=== PATIENT | male | born 1995 | race Caucasian/White ===

== ENCOUNTER 2016-12-23 19:18 | Observation (INO) | payer BC ==
[~2016-12-23] VITALS: Ht 188 cm; Wt 136.3 kg
[~2016-12-23 19:18] MED LIST: ASCO500T3 PO; IBUP-103 PO; LYSINE PO
[2016-12-23] MEDS ORDERED: ONDANSETRON INJ 2 MG/ML 2 ML VIAL IV STA (20:00)
[2016-12-23] MEDS ORDERED: SODIUM CHLORIDE 0.9% 1000ML 1,000 ML IV STA ×2 (20:00)
[2016-12-23] MEDS: MoRPHine SULFATE 4 MG/ML 1 ML CARP\\VIAL IV PRN ×3 (20:17→22:22)
[2016-12-23 20:25] LABS: BASO % 0.1 %; BASO ABS # 0.02 K/uL (0-0.2); COMPLETE YES; EOS % 0.4 %; HEMATOCRIT 43.9 % (42-52); IG% 0.2 %; LYMPH % 8.5 %; LYMPH ABS # 1.42 K/uL (1.2-3.4); MEAN CELL VOLUME 83.9 fL (80-100); MEAN CORPUSCULAR HEMOGLOBIN 29.1 pg (25-34); MEAN CORPUSCULAR HGB CONC 34.6 g/dl (32-36); MEAN PLATELET VOLUME 9.7 fL (7.4-10.4); MONO % 6.8 %; PLATELET COUNT 200 K/uL (130-400); RED BLOOD COUNT 5.23 M/uL (4.7-6.1); WHITE BLOOD COUNT 16.65 K/uL (4.8-10.8)
[2016-12-23 20:46] LABS: BUN/CREATININE RATIO 22.7 (10-20); CALCIUM 9.2 mg/dl (8.5-10.1); CREATININE 0.84 mg/dl (0.60-1.40); POTASSIUM 3.9 mmol/L (3.5-5.1)
--- NOTE | 2016-12-23 21:40 | DIAGNOSTIC IMAGING REPORT ---
APPENDIX ULTRASOUND HISTORY: Right lower quadrant abdominal pain. COMPARISON: None. FINDINGS: Note is made of a noncompressible blind ending tubular structure within the right lower quadrant that measures 2.2 cm in caliber. This structure contains echogenic shadowing abnormalities which likely reflect appendicoliths. IMPRESSION: Sonographic findings highly suggestive of acute appendicitis. Markedly dilated noncompressible appendix which contains appendicoliths. Findings discussed with Dr. Mackey at time of dictation. Electronically signed by: Jose M Haro M.D. 12/23/2016 9:39 PM Dictated Date/Time: 12/23/2016 9:38 PM
--- NOTE | 2016-12-23 21:51 | EMERGENCY ROOM VISIT NOTE ---
History Report prepared by Kaveh: Citlali Ovalle Under the Supervision of: Dr. Jamshid Maceky D.O. First contact with patient: 19:31 Chief Complaint: ABDOMINAL PAIN Stated Complaint: BAD ABD PAIN,VOMITING Nursing Triage Summary: PT woke this am with abd pain below umbilical area. PT then developed vomiting. PT has been vomiting all day, denies any cough or congestion, denies fever/chills. PT has dull aching pain to lower abd, denies any diarrhea. PT denies urinary symptoms also. PT gave U/A, noted to be dark yellow in color. History of Present Illness The patient is a 21 year old male who presents to the Emergency Room with complaints of worsening diffuse abdominal pain that started this morning. The patient describes the pain as a dull aching pain. He rates his discomfort as a 7 /10 in severity. The patient went to work this morning and the pain got progressively worse. He does landscaping for work. When he got home from work, he ate a bagel but he vomited after. He tried to take Advil to relieve his symptoms, but he vomited again afterward. He denies fevers, hematemesis, rectal bleeding, diarrhea, testicular pain, and lower extremity edema. The patient states that the dog jumped on his abdomen yesterday, but it was more in the area of his groin and the pain that he experienced as a result of that resolved after some time. Otherwise, the patient denies any trauma to his abdomen. The patient denies eating anything abnormal recently, but he adds that he did eat at [employer] last night. Source of History: patient Onset: this morning Position: abdomen (diffuse) Symptom Intensity: 7/10 Quality: ache, dull Timing: worsening Associated Symptoms: + nausea, + vomiting, No diarrhea, No fevers Note: no hematemesis, no rectal bleeding, no testicular pain, no lower extremity edema Review of Systems See HPI for pertinent positives & negatives. A total of 10 systems reviewed and were otherwise negative. Past Medical & Surgical Medical Problems: (1) No significant past medical history Surgical Problems: (1) No significant past surgical history Family History Hypertension Social History Smoking Status: Never Smoker Housing Status: lives with family Occupation Status: employed Current/Historical Medications Scheduled PRN Ibuprofen Tab (Advil), 400 MG PO TID PRN for Pain or Fever Allergies Coded Allergies: No Known Allergies (Unverified , NONE, 12/23/16) Physical Exam Vital Signs Date Time Temp Pulse Resp B/P Pulse Ox O2 Delivery O2 Flow Rate FiO2 12/23/16 22:09 92 18 128/63 98 12/23/16 21:42 80 18 134/67 99 Room Air 12/23/16 20:30 79 18 170/89 98 Room Air 12/23/16 20:20 79 18 160/78 100 Room Air 12/23/16 19:20 37.0 80 20 154/89 97 Room Air Physical Exam GENERAL: Patient is awake, alert, and in no acute distress. Patient is somewhat anxious appearing and appeared to be in pain. EYES: The conjunctivae are clear. The pupils are round and reactive. EARS, NOSE, MOUTH AND THROAT: The nose is without any evidence of any deformity. Mucous membranes are moist tongue is midline NECK: The neck is nontender and supple. RESPIRATORY: Normal respiratory effort is noted there is no evidence of wheezing rhonchi or rales CARDIOVASCULAR: Regular rate and rhythm noted there no murmurs rubs or gallops normal S1 normal S2 GASTROINTESTINAL: The abdomen is soft and distended. Bowel sounds are present in all quadrants. Abdomen is diffusely tender. Guarding in right lower quadrant , left upper quadrant, and left lower quadrant. BACK: No midline tenderness or or step-off noted range of motion in flexion extension as well as rotation no signs of muscle spasm noted MUSCULOSKELETAL/EXTREMITIES: There is no evidence of gross deformity full range of motion is noted in the hips and shoulders SKIN: There is no obvious evidence of any rash. There are no petechiae, pallor or cyanosis noted. NEUROLOGIC: Patient is awake alert and oriented x3 Medical Decision & Procedures ER Provider Diagnostic Interpretation: US results as stated below per my review and radiologist interpretation. APPENDIX ULTRASOUND IMPRESSION: Sonographic findings highly suggestive of acute appendicitis. Markedly dilated noncompressible appendix which contains appendicoliths. Findings discussed with Dr. Mackey at time of dictation. Electronically signed by: Jose M Haro M.D. 12/23/2016 9:39 PM Dictated Date/Time: 12/23/2016 9:38 PM Laboratory Results 12/23/16 20:16 Red Blood Count 5.23, Mean Corpuscular Volume 83.9, Mean Corpuscular Hemoglobin 29.1, Mean Corpuscular Hemoglobin Concent 34.6, Mean Platelet Volume 9.7, Neutrophils (%) (Auto) 84.0, Lymphocytes (%) (Auto) 8.5, Monocytes (%) (Auto) 6.8, Eosinophils (%) (Auto) 0.4, Basophils (%) (Auto) 0.1, Neutrophils # (Auto) 13.98, Lymphocytes # (Auto) 1.42, Monocytes # (Auto) 1.13, Eosinophils # (Auto) 0.07, Basophils # (Auto) 0.02 12/23/16 20:16 Test 12/23/16 19:35 12/23/16 20:16 Urine Color YELLOW Urine Appearance TURBID (CLEAR) Urine pH 5.5 (4.5-7.5) Urine Specific [place] 1.034 (1.000-1.030) Urine Protein NEG (NEG) Urine Glucose (UA) NEG (NEG) Urine Ketones 2+ (NEG) Urine Occult Blood NEG (NEG) Urine Nitrite NEG (NEG) Urine Bilirubin NEG (NEG) Urine Urobilinogen NEG (NEG) Urine Leukocyte Esterase NEG (NEG) Urine WBC (Auto) 1-5 /hpf (0-5) Urine RBC (Auto) 0-4 /hpf (0-4) Urine Hyaline Casts (Auto) 1-5 /lpf (0-5) Urine Epithelial Cells (Auto) 10-20 /lpf (0-5) Urine Bacteria (Auto) NEG (NEG) White Blood Count 16.65 K/uL (4.8-10.8) Red Blood Count 5.23 M/uL (4.7-6.1) Hemoglobin 15.2 g/dL (14.0-18.0) Hematocrit 43.9 % (42-52) Mean Corpuscular Volume 83.9 fL (80-100) Mean Corpuscular Hemoglobin 29.1 pg (25-34) Mean Corpuscular Hemoglobin Concent 34.6 g/dl (32-36) Platelet Count 200 K/uL (130-400) Mean Platelet Volume 9.7 fL (7.4-10.4) Neutrophils (%) (Auto) 84.0 % Lymphocytes (%) (Auto) 8.5 % Monocytes (%) (Auto) 6.8 % Eosinophils (%) (Auto) 0.4 % Basophils (%) (Auto) 0.1 % Neutrophils # (Auto) 13.98 K/uL (1.4-6.5) Lymphocytes # (Auto) 1.42 K/uL (1.2-3.4) Monocytes # (Auto) 1.13 K/uL (0.11-0.59) Eosinophils # (Auto) 0.07 K/uL (0-0.5) Basophils # (Auto) 0.02 K/uL (0-0.2) RDW Standard Deviation 37.8 fL (36.4-46.3) RDW Coefficient of Variation 12.4 % (11.5-14.5) Immature Granulocyte % (Auto) 0.2 % Immature Granulocyte # (Auto) 0.03 K/uL (0.00-0.02) Anion Gap 6.0 mmol/L (3-11) Est Creatinine Clear Calc Drug Dose 206.1 ml/min Estimated GFR () 146.1 Estimated GFR (Non- 126.0 BUN/Creatinine Ratio 22.7 (10-20) Calcium Level 9.2 mg/dl (8.5-10.1) Total Bilirubin 0.9 mg/dl (0.2-1) Direct Bilirubin 0.1 mg/dl (0-0.2) Aspartate Amino Transf (AST/SGOT) 19 U/L (15-37) Alanine Aminotransferase (ALT/SGPT) 36 U/L (12-78) Alkaline Phosphatase 93 U/L (45-117) Total Protein 7.6 gm/dl (6.4-8.2) Albumin 4.3 gm/dl (3.4-5.0) Lipase 87 U/L (73-393) Laboratory results per my review. Medications Administered Medications (Trade) Dose Ordered Sig/Alex Route Start Time Stop Time Status Last Admin Dose Admin Morphine Sulfate (MoRPHine SULFATE INJ) 4 mg Q15M PRN IV 12/23/16 20:00 01/06/17 19:59 12/23/16 22:22 4 MG Ondansetron HCl 4 mg 4 mg NOW STAT IV 12/23/16 20:00 12/23/16 20:02 DC 12/23/16 20:16 4 MG Sodium Chloride 1,000 ml @ 200 mls/hr Q5H STAT IV 12/23/16 20:00 12/24/16 00:59 12/23/16 22:13 200 MLS/HR Sodium Chloride (Nss 1000ml) 1,000 ml @ 999 mls/hr Q1H1M STAT IV 12/23/16 20:00 12/23/16 21:00 DC 12/23/16 20:16 999 MLS/HR Cefoxitin Sodium (Mefoxin IV) 2,000 mg STK-MED ONCE .ROUTE 12/23/16 22:13 12/23/16 22:16 DC 12/23/16 22:22 2,000 MG ED Course 1933: The medical student evaluated the patient at this time. We discussed her findings and potential treatment plans. 1957: The patient was evaluated in room C12. A complete history and physical examination were performed. 1999: Ordered NSS 1,000 ml @ 999 mls/hr IV, NSS 1,000 ml @ 200 mls/hr IV, Zofran Inj 4 mg IV, Morphine Sulfate 4 mg IV 2129: Ultrasound called me and informed me that the patient's appendix appears dilated. 2132: The medical student updated the patient on the suspected ultrasound results. 2133: I discussed the patient's case with Dr. Skyler Nash Surgery. The patient will be evaluated for further management. 2135: Dr. Haro - Radiology called to inform me that the patient does have acute appendicitis on ultrasound. 2143: Upon the medical student's reevaluation, the patient is resting comfortably. She discussed results and treatment plan with the patient and his mother. They verbalize agreement and understanding. I spoke with Dr. Skyler Fuller. The patient will be evaluated for further management and care. Medical Decision Prior records/ancillary studies reviewed. Triage Nursing notes reviewed. The patient's history was concerning for abdominal pain. Differential diagnosis: Etiologies such as appendicitis, diverticulitis, PUD, biliary pathology, UTI, pancreatitis, obstruction, mesenteric ischemia, aortic pathology, infections, inflammatory bowel disease, renal colic, as well as others were entertained. The patient is a 21-year-old male who presented to the emergency department for an evaluation of ongoing right-sided abdominal pain. The patient had very significant tenderness in the right lower quadrant. He had guarding in the right lower quadrant. He had an elevated white blood cell count. The patient had an ultrasound which did reveal signs of appendicitis. I discussed the patient's laboratory and radiographic studies with him. He was treated with IV fluids IV pain medicine and IV antiemetics. The patient is feeling somewhat better on reevaluation. I discussed this case with the on-call general surgeon. He has agreed to evaluate the patient urgency apartment for further management and disposition. Consults Time Called: 2131 Consulting Physician: Dr. Holland - General Surgery Returned Call: 2133 I discussed the patient's case with Dr. Holland - General Surgery. The patient will be evaluated for further management. Impression Primary Impression: Acute appendicitis Scribe Attestation The scribe's documentation has been prepared under my direction and personally reviewed by me in its entirety. I confirm that the note above accurately reflects all work, treatment, procedures, and medical decision making performed by me. Departure Information Dispostion Being Evaluated By Surgeon Referrals No Doctor, Assigned (PCP) Patient Instructions My [facility] Problem Qualifiers Primary Impression: Acute appendicitis Acute appendicitis type: with localized peritonitis Qualified Codes: K35.3 - Acute appendicitis with localized peritonitis
[2016-12-23 21:59] LABS: URINE APPEARANCE TURBID (CLEAR); URINE BILIRUBIN NEG (NEG); URINE COLOR YELLOW; URINE NITRITE NEG (NEG); URINE PH 5.5 (4.5-7.5); URINE SPECIFIC GRAVITY 1.034 (1.000-1.030); UROBILINOGEN NEG (NEG)
[2016-12-23 22:00] LABS: MANUAL MICROSCOPIC REQUIRED? NO; REVIEW REQ? NO
[2016-12-23] MEDS ORDERED: GLYCOPYRROLATE INJ 0.2 MG/ML VIAL ONE (22:08)
[2016-12-23] MEDS ORDERED: NEOSTIGMINE METHYLSULFATE 5 MG/5 ML SYR ONE (22:08)
[2016-12-23] MEDS ORDERED: MIDAZOLAM HCL 1 MG/ML 2ML VIAL ONE (22:08)
[2016-12-23] MEDS ORDERED: DEXAMETHASONE SOD INJ 4 MG/ML VIAL ONE (22:08)
[2016-12-23] MEDS ORDERED: SUCCINYLCHOLINE CHLORIDE 20 MG/ML 10 ML VIAL IV ONE (22:08)
[2016-12-23] MEDS ORDERED: PROPOFOL IV EMULSION 10 MG/ML 20 ML VIAL IV ONE (22:08)
[2016-12-23] MEDS ORDERED: FENTANYL CITRATE INJ 50 MCG/1 ML 2 ML VIAL ONE ×2 (22:08→23:24)
[2016-12-23] MEDS ORDERED: ROCURONIUM BROMIDE 10 MG/ML 5 ML VIAL ONE (22:08)
[2016-12-23] MEDS ORDERED: ONDANSETRON INJ 2 MG/ML 2 ML VIAL ONE (22:08)
[2016-12-23] MEDS ORDERED: CEFOXITIN SOD 2 GM VIAL ONE (22:13)
[2016-12-23] MEDS ORDERED: CEFOXITIN SOD 2 GM VIAL IV STA (22:19)
--- NOTE | 2016-12-23 22:19 | History and Physical ---
History & Physical Date & Time of Service: Dec 23, 2016 at 22:11 Chief Complaint: Bad Abd Pain,Vomiting Primary Care Physician: No Doctor, Assigned History of Present Illness Source: patient, family pt is a 21 year old male who presents to ER for one day history lower abdominal pain, with nausea and vomiting, pt's pain is located at RLQ, pt denies diarrhea , no fever, Family History Hypertension Social History Smoking Status: Never Smoker Smokeless Tobacco Use: No Alcohol Use: none Drug Use: none Occupational Status: employed Allergies Coded Allergies: No Known Allergies (Unverified , NONE, 12/23/16) Home Medications Scheduled PRN Ibuprofen Tab (Advil), 400 MG PO TID PRN for Pain or Fever Review of Systems Constitutional: No chills, No fatigue, No fever, No problem reported, No sweats , No weakness, No weight loss Eyes: No diplopia, No discharge, No eye pain, No problem reported, No redness, No worsening of vision ENT: No dental problems, No hearing loss, No nasal symptoms, No problem reported, No sore throat, No tinnitus, No trouble swallowing, No unusual epistaxis Respiratory: No cough, No dyspnea at rest, No dyspnea on exertion, No hemoptysis, No problem reported, No shortness of breath, No sputum, No wheezing Cardiovascular: No PND, No chest pain, No claudication, No edema, No orthopnea , No palpitations, No problem reported Abdomen: + nausea, + pain, + vomiting Musculoskeletal: No calf pain, No joint pain, No muscle pain, No problem reported, No swelling Genitourinary - Male: No dysuria, No hematuria, No impotence, No lesions, No penile discharge, No problem reported, No urinary frequency, No urinary hesitancy, No urinary incontinence, No urinary retention, No urinary urgency Neurologic: No balance problems, No memory loss, No numbness/tingling, No paralysis, No problem reported, No vertigo, No weakness Psychiatric: No anhedonism, No anxiety, No depression symptoms, No insomnia, No problem reported, No substance abuse Endocrine: No excessive thirst, No excessive urination, No fatigue, No problem reported Hematologic / Lymphatic: No abnormal bleeding/bruising, No clotting problems, No night sweats, No problem reported, No swollen lymph nodes Physical Exam Vital Signs Date Time Temp Pulse Resp B/P Pulse Ox O2 Delivery O2 Flow Rate FiO2 12/23/16 22:09 92 18 128/63 98 12/23/16 21:42 80 18 134/67 99 Room Air 12/23/16 20:30 79 18 170/89 98 Room Air 12/23/16 20:20 79 18 160/78 100 Room Air 12/23/16 19:20 37.0 80 20 154/89 97 Room Air General Appearance: WD/WN, + mild distress Head: normocephalic Eyes: normal inspection ENT: normal ENT inspection Neck: supple, no JVD Respiratory/Chest: chest non-tender Cardiovascular: regular rate, rhythm, no edema, no gallop, no JVD Abdomen/GI: soft, + tenderness, + guarding, + rebound Extremities/Musculoskelatal: normal inspection, no calf tenderness, normal capillary refill Neurologic/Psych: no motor/sensory deficits, alert, normal mood/affect Skin: normal color, warm/dry, no rash Diagnostics Laboratory Results Results Past 24 Hours Test 12/23/16 19:35 12/23/16 20:16 Range/Units Urine Color YELLOW Urine Appearance TURBID CLEAR Urine pH 5.5 4.5-7.5 Urine Specific [place] 1.034 1.000-1.030 Urine Protein NEG NEG Urine Glucose (UA) NEG NEG Urine Ketones 2+ NEG Urine Occult Blood NEG NEG Urine Nitrite NEG NEG Urine Bilirubin NEG NEG Urine Urobilinogen NEG NEG Urine Leukocyte Esterase NEG NEG Urine WBC (Auto) 1-5 0-5 /hpf Urine RBC (Auto) 0-4 0-4 /hpf Urine Hyaline Casts (Auto) 1-5 0-5 /lpf Urine Epithelial Cells (Auto) 10-20 0-5 /lpf Urine Bacteria (Auto) NEG NEG White Blood Count 16.65 4.8-10.8 K/uL Red Blood Count 5.23 4.7-6.1 M/uL Hemoglobin 15.2 14.0-18.0 g/dL Hematocrit 43.9 42-52 % Mean Corpuscular Volume 83.9 80-100 fL Mean Corpuscular Hemoglobin 29.1 25-34 pg Mean Corpuscular Hemoglobin Concent 34.6 32-36 g/dl Platelet Count 200 130-400 K/uL Mean Platelet Volume 9.7 7.4-10.4 fL Neutrophils (%) (Auto) 84.0 % Lymphocytes (%) (Auto) 8.5 % Monocytes (%) (Auto) 6.8 % Eosinophils (%) (Auto) 0.4 % Basophils (%) (Auto) 0.1 % Neutrophils # (Auto) 13.98 1.4-6.5 K/uL Lymphocytes # (Auto) 1.42 1.2-3.4 K/uL Monocytes # (Auto) 1.13 0.11-0.59 K/uL Eosinophils # (Auto) 0.07 0-0.5 K/uL Basophils # (Auto) 0.02 0-0.2 K/uL RDW Standard Deviation 37.8 36.4-46.3 fL RDW Coefficient of Variation 12.4 11.5-14.5 % Immature Granulocyte % (Auto) 0.2 % Immature Granulocyte # (Auto) 0.03 0.00-0.02 K/uL Sodium Level 136 136-145 mmol/L Potassium Level 3.9 3.5-5.1 mmol/L Chloride Level 100 98-107 mmol/L Carbon Dioxide Level 30 21-32 mmol/L Anion Gap 6.0 3-11 mmol/L Blood Urea Nitrogen 19 7-18 mg/dl Creatinine 0.84 0.60-1.40 mg/dl Est Creatinine Clear Calc Drug Dose 206.1 ml/min Estimated GFR () 146.1 Estimated GFR (Non- 126.0 BUN/Creatinine Ratio 22.7 10-20 Random Glucose 100 70-99 mg/dl Calcium Level 9.2 8.5-10.1 mg/dl Total Bilirubin 0.9 0.2-1 mg/dl Direct Bilirubin 0.1 0-0.2 mg/dl Aspartate Amino Transf (AST/SGOT) 19 15-37 U/L Alanine Aminotransferase (ALT/SGPT) 36 12-78 U/L Alkaline Phosphatase 93 45-117 U/L Total Protein 7.6 6.4-8.2 gm/dl Albumin 4.3 3.4-5.0 gm/dl Lipase 87 73-393 U/L Diagnostic Radiology U/s study-IMPRESSION: Sonographic findings highly suggestive of acute appendicitis. Markedly dilated noncompressible appendix which contains appendicoliths. Impression Assessment and Plan IMP: acute appendicitis Plan, I recommend to do laparoscopic appendectomy possible open, D/W benefits, risks and alternatives of the procedure, the risks- infection, bleeding, abscess , incisional hernia, , pt understood, he signed consent, I answered all questions, pt and her Mom agree with the plan, ASA Classification: ASA Class I VTE Prophylaxis Given or contraindicated: SCD's
[2016-12-23] MEDS ORDERED: ONDANSETRON INJ 2 MG/ML 2 ML VIAL IV PRN ×2 (22:30→22:45)
[2016-12-23] MEDS ORDERED: OXYCODONE/ACETAMINOPHEN 5-325 TAB PO PRN (22:30)
[2016-12-23] MEDS ORDERED: EpHEDrine SULFATE INJ 50 MG/ML AMP IV PRN (22:45)
[2016-12-23] MEDS ORDERED: ATROPINE SULFATE 0.1 MG/ML 5ML SYR IV PRN (22:45)
[2016-12-23] MEDS ORDERED: FENTANYL CITRATE INJ 50 MCG/1 ML 2 ML VIAL IV PRN (22:45)
[2016-12-23] MEDS ORDERED: HYDROmorphone INJ 1 MG/ML SYR IV PRN (22:45)
[2016-12-23] MEDS ORDERED: BUPIVACAINE 0.5 % 5 MG/1 ML MPF 30ML VIAL ONE (22:52)
[2016-12-23] MEDS ORDERED: LIDOCAINE HCL 1% 20 ML VIAL ONE (22:52)
[2016-12-23] MEDS ORDERED: BACITRACIN OINT 15 GM TUBE ONE (23:46)
[2016-12-24] VITALS (8 sets, daily range): BP systolic 117–142; BP diastolic 64–76; PULSE 75–95; TEMP 36.5–37; O2SAT 93–98; Ht 188 cm; Wt 136.3 kg
--- NOTE | 2016-12-24 00:09 | [facility] Post Operative Brief Note ---
Immediate Operative Summary Operative Date Dec 24, 2016. Pre-Operative Diagnosis Acute appendicitis Post-Operative Diagnosis same as pre-op Procedure(s) Performed Laparoscopic appendectomy Surgeon Dr. Holland Mechanical Ordnance Assembler Surgeon(s) none Estimated Blood Loss 10ML Findings acute appendicitis Specimens A. appendix Drains none Anesthesia general Complication(s) None Disposition Recovery Room / PACU
--- NOTE | 2016-12-24 00:42 | Anesthesiology Progress Note ---
Anesthesia Post Op Note Date & Time Dec 24, 2016 at 00:41 Vital Signs Pain Intensity: 7.0 Vital Signs Past 12 Hours Date Time Temp Pulse Resp B/P Pulse Ox O2 Delivery O2 Flow Rate FiO2 12/24/16 00:30 82 16 143/71 95 Nasal Cannula 2 12/24/16 00:20 79 16 157/66 98 Nasal Cannula 2 12/24/16 00:15 36.8 106 16 151/84 98 Mask 10 12/23/16 22:09 92 18 128/63 98 12/23/16 21:42 80 18 134/67 99 Room Air 12/23/16 20:30 79 18 170/89 98 Room Air 12/23/16 20:20 79 18 160/78 100 Room Air 12/23/16 19:20 37.0 80 20 154/89 97 Room Air Notes Mental Status: alert / awake / arousable, participated in evaluation Pt Amnestic to Procedure: Yes Nausea / Vomiting: adequately controlled Pain: adequately controlled, improving with treatment Airway Patency, RR, SpO2: stable & adequate BP & HR: stable & adequate Hydration State: stable & adequate Anesthetic Complications: no major complications apparent
[2016-12-24] MEDS: D5W AND 1/2NSS + 20MEQ KCL 1,000 ML IV SCH ×3 (02:09→12:28)
--- NOTE | 2016-12-24 03:31 | OPERATIVE REPORT ---
DATE OF OPERATION: 12/23/2016 PREOPERATIVE DIAGNOSIS: Acute appendicitis. POSTOPERATIVE DIAGNOSIS: Same. OPERATION: Appendectomy, laparoscopy. SURGEON: Dr. Jeremias Holland. ANESTHESIA: General. ESTIMATED BLOOD LOSS: About 10 mL FINDING: Acute appendicitis. INTRAVENOUS FLUID: 1 liter. COMPLICATION: None. INDICATION FOR THE PROCEDURE: This is a 21-year-old gentleman who presented to the ED with 1-day history of lower abdominal pain. The patient had an ultrasound that showed acute appendicitis. We decided to take the patient to the OR. I did talk to the patient about the benefit, risk, alternate procedure. The procedure we plan to do is laparoscopic appendectomy, possible open, possible cholangiogram. The risks may include but not limited such as bleeding, infection, abscess, incisional hernia, even . The patient understands. He signed informed consent and I answered all questions. DETAILS OF PROCEDURE: We brought the patient to the OR, put the patient in supine position. The patient received SCDs on bilateral legs to prevent DVT. Also, the patient received 2 gram cefoxitin IV for prophylactic antibiotic. The patient received general anesthesia without difficulty and the patient received Elizalde catheter insertion. The abdomen was prepped and draped in routine sterile fashion. After a timeout, I injected local anesthesia by using 1% lidocaine mixed with 0.25% Marcaine just above the umbilicus. Then, we made a small incision just above the umbilicus, opened fascia and opened peritoneum under direct vision. We put a Reyna trocar in, connected to CO2 flow rate, it is 6 liter per minute, pressure not more than 14 mmHg. Once we got a nice pneumoperitoneum, we put a 10 mm camera in, looked around the abdomen, showing normal looking stomach, small-bowel, large bowel, and liver. No free fluid in the pelvic area. However, at the appendix, there is significant inflammation, swollen, 2 cm in diameter size, with diagnosis of acute appendicitis correct. Then, we put two 5 mm trocar just below the umbilicus, about 3 cm apart each. Then, we put a grasper in to hold the appendix and used Harmonic to takedown on the base of the appendix and then I used 45 mm Endo-ABDOULAYE stapler for transection on the base of the appendix, rechecked, no active bleeding, no leak. Then, we put a catch bag in, caught the appendix through the catch bag and pulled out through the incision. Then, we reinserted Reyna trocar in, creating pneumoperitoneum again, looked around the abdomen. No active bleeding, no leak on the staple line. Then, we removed all trocars under direct vision. No active bleeding from trocar sites. The pneumoperitoneum released. Then, using #1 Vicryl, closed the fascial layer [id number] x2 on the umbilical incision. Then, using 2-0 Vicryl, closed the subcutaneous layer, interrupted, and used 4-0 Vicryl to close the skin. Two 5 mm trocar site closed skin only by using 4-0 Vicryl. Then, we put the dressing on. After the dressing, the Elizalde catheter was removed and the patient was extubated in the OR, transported to the recovery room in stable condition. After the procedure, I did talk to the patient's mom about the OR finding and procedure we did. The patient's mom understood. All instrument, needle and sponge count correct x2 at the end of the case. Specimen sent to pathology. I attest to the content of the Intraoperative Record and any orders documented therein. Any exceptions are noted below. CANDY
[2016-12-24] MEDS: CEFOXITIN IV 1,000 MG in DEXTROSE 5% 50ML 50 ML IV SCH ×2 (03:45→10:07)
[2016-12-24] MEDS ORDERED: IV FLUIDS COMPLETED PRN (04:15)
[2016-12-24 07:49] LABS: BASO % 0.1 %; BASO ABS # 0.01 K/uL (0-0.2); COMPLETE YES; HEMATOCRIT 41.4 % (42-52); IG% 0.2 %; LYMPH % 6.6 %; LYMPH ABS # 0.89 K/uL (1.2-3.4); MEAN CELL VOLUME 84.5 fL (80-100); MEAN CORPUSCULAR HEMOGLOBIN 28.6 pg (25-34); MEAN CORPUSCULAR HGB CONC 33.8 g/dl (32-36); MEAN PLATELET VOLUME 10.1 fL (7.4-10.4); NEUT % 88.1 %; PLATELET COUNT 225 K/uL (130-400); WHITE BLOOD COUNT 13.48 K/uL (4.8-10.8)
--- NOTE | 2016-12-24 09:14 | Surgery Progress Note ---
Surgery Progress Note Date of Service Dec 24, 2016. Subjective Post OP Day: 1 + ambulating, + feeling well, + pain controlled, No SOB, No bowel movement, No chest pain, No complaints, No flatus, No nausea, No vomiting Objective Vital Signs: Date Time Temp Pulse Resp B/P Pulse Ox O2 Delivery O2 Flow Rate FiO2 12/24/16 07:50 Room Air 12/24/16 07:21 36.5 85 16 139/75 98 Room Air 12/24/16 04:40 36.8 75 16 142/74 96 Room Air 12/24/16 03:40 36.6 89 16 131/71 98 Nasal Cannula 1.0 12/24/16 02:39 36.8 86 16 142/69 97 Nasal Cannula 1.0 12/24/16 02:09 37.0 86 16 142/76 93 Nasal Cannula 1.0 12/24/16 01:40 36.6 85 16 122/64 94 Nasal Cannula 2.0 12/24/16 01:40 36.6 85 16 122/64 94 Nasal Cannula 2.0 12/24/16 01:40 Nasal Cannula 2.0 12/24/16 01:40 94 Nasal Cannula 2.0 12/24/16 01:07 36.6 83 16 148/70 96 Nasal Cannula 2 12/24/16 00:50 83 16 161/82 96 Nasal Cannula 2 12/24/16 00:40 85 16 147/71 95 Nasal Cannula 2 12/24/16 00:30 82 16 143/71 95 Nasal Cannula 2 12/24/16 00:20 79 16 157/66 98 Nasal Cannula 2 12/24/16 00:15 36.8 106 16 151/84 98 Mask 10 12/23/16 22:09 92 18 128/63 98 12/23/16 21:42 80 18 134/67 99 Room Air 12/23/16 20:30 79 18 170/89 98 Room Air 12/23/16 20:20 79 18 160/78 100 Room Air 12/23/16 19:20 37.0 80 20 154/89 97 Room Air General Appearance: WD/WN, no apparent distress Head: normocephalic, atraumatic Abdomen: non tender, non distended, soft Incision(s): clean (dressing clean and dry), dry Extremities: normal range of motion Laboratory Results: Results Past 24 Hours Test 12/23/16 19:35 12/23/16 20:16 12/24/16 07:20 Range/Units Urine Color YELLOW Urine Appearance TURBID CLEAR Urine pH 5.5 4.5-7.5 Urine Specific Menan 1.034 1.000-1.030 Urine Protein NEG NEG Urine Glucose (UA) NEG NEG Urine Ketones 2+ NEG Urine Occult Blood NEG NEG Urine Nitrite NEG NEG Urine Bilirubin NEG NEG Urine Urobilinogen NEG NEG Urine Leukocyte Esterase NEG NEG Urine WBC (Auto) 1-5 0-5 /hpf Urine RBC (Auto) 0-4 0-4 /hpf Urine Hyaline Casts (Auto) 1-5 0-5 /lpf Urine Epithelial Cells (Auto) 10-20 0-5 /lpf Urine Bacteria (Auto) NEG NEG White Blood Count 16.65 13.48 4.8-10.8 K/uL Red Blood Count 5.23 4.90 4.7-6.1 M/uL Hemoglobin 15.2 14.0 14.0-18.0 g/dL Hematocrit 43.9 41.4 42-52 % Mean Corpuscular Volume 83.9 84.5 80-100 fL Mean Corpuscular Hemoglobin 29.1 28.6 25-34 pg Mean Corpuscular Hemoglobin Concent 34.6 33.8 32-36 g/dl Platelet Count 200 225 130-400 K/uL Mean Platelet Volume 9.7 10.1 7.4-10.4 fL Neutrophils (%) (Auto) 84.0 88.1 % Lymphocytes (%) (Auto) 8.5 6.6 % Monocytes (%) (Auto) 6.8 5.0 % Eosinophils (%) (Auto) 0.4 0.0 % Basophils (%) (Auto) 0.1 0.1 % Neutrophils # (Auto) 13.98 11.88 1.4-6.5 K/uL Lymphocytes # (Auto) 1.42 0.89 1.2-3.4 K/uL Monocytes # (Auto) 1.13 0.67 0.11-0.59 K/uL Eosinophils # (Auto) 0.07 0.00 0-0.5 K/uL Basophils # (Auto) 0.02 0.01 0-0.2 K/uL RDW Standard Deviation 37.8 38.3 36.4-46.3 fL RDW Coefficient of Variation 12.4 12.6 11.5-14.5 % Immature Granulocyte % (Auto) 0.2 0.2 % Immature Granulocyte # (Auto) 0.03 0.03 0.00-0.02 K/uL Sodium Level 136 136-145 mmol/L Potassium Level 3.9 3.5-5.1 mmol/L Chloride Level 100 98-107 mmol/L Carbon Dioxide Level 30 21-32 mmol/L Anion Gap 6.0 3-11 mmol/L Blood Urea Nitrogen 19 7-18 mg/dl Creatinine 0.84 0.60-1.40 mg/dl Est Creatinine Clear Calc Drug Dose 206.1 ml/min Estimated GFR () 146.1 Estimated GFR (Non- 126.0 BUN/Creatinine Ratio 22.7 10-20 Random Glucose 100 70-99 mg/dl Calcium Level 9.2 8.5-10.1 mg/dl Total Bilirubin 0.9 0.2-1 mg/dl Direct Bilirubin 0.1 0-0.2 mg/dl Aspartate Amino Transf (AST/SGOT) 19 15-37 U/L Alanine Aminotransferase (ALT/SGPT) 36 12-78 U/L Alkaline Phosphatase 93 45-117 U/L Total Protein 7.6 6.4-8.2 gm/dl Albumin 4.3 3.4-5.0 gm/dl Lipase 87 73-393 U/L Assessment & Plan POD # 1 s/p laparoscopic appendectomy - vital signs stable - Leukocytosis decreasing - abdominal pain minimal and controlled, pre-operative pain resolved - no nausea or vomiting PLAN: Advance diet as tolerated D/C iv antibiotics Plan for discharge this afternoon Follow-up in office in [address] Holland Discharge instructions given I have discussed this patient with Dr. Holland who is in agreement with above stated findings and treatment plan.
[2016-12-24] MEDS ORDERED: OXYC-57 PO (10:18)
--- NOTE | 2016-12-24 10:22 | Discharge Instructions ---
Discharge Instructions Admission Reason for Admission: Acute Appendicitis Discharge Discharge Diagnosis / Problem: S/p laparoscopic appendectomy Discharge Goals Goal(s): Decrease discomfort Activity Recommendations Activity Limitations: as noted below Lifting Limitations: no more than 10 pounds No heavy lifting over 10 pounds for 2 weeks Walking is encouraged to prevent blood clots . Instructions / Follow-Up Instructions / Follow-Up Keep dressings on for 4 days and then you may shower. Sponge bath in the meantime If you develop any fever, chills, nausea, vomiting please call office at or if severe go to emergency department Follow-up with Dr. Holland in one week please call office at [phone] to make an appointment Current Hospital Diet Patient's current hospital diet: Clear Liquid Diet Discharge Diet Recommended Diet: Regular Diet Procedures Procedures Performed: Laparoscopic appendectomy Pending Studies Studies pending at discharge: no Medical Emergencies . Who to Call and When: Medical Emergencies: If at any time you feel your situation is an emergency, please call 911 immediately. . Non-Emergent Contact Non-Emergency issues call your: Primary Care Provider, Surgeon Call Non-Emergent contact if: temperature is above 101.5, your pain is not controlled, your pain is worsening, your pain is concerning you, wound has increased drainage, wound has increased redness, wound has increased pain . "Provider Documentation" section prepared by Lida Henson. VTE Core Measure Inpt VTE Proph given/why not?: SCD's [place] Drug Monitoring Program Search Results: patient reviewed within database, no issues identified
[2016-12-24] MEDS ORDERED: INFLUENZA ADMINISTRATION CHARGE ONE (11:45)
[2016-12-24] MEDS ORDERED: INFLUENZA VIRUS QUAD VACCINE 0.5 ML SYR IM. ONE (11:45)
--- NOTE | 2016-12-24 15:29 | DISCHARGE SUMMARY ---
ADMITTING DIAGNOSIS: Acute appendicitis. POSTOPERATIVE DIAGNOSIS: Same. OPERATION: Laparoscopic cholecystectomy. SURGEON: Dr. Jeremias Holland. DETAILS OF DISCHARGE SUMMARY: This is a 21-year-old gentlemen who presented to the ED with right lower quadrant pain. The patient had ultrasound that showed acute appendicitis. We took the patient to the OR. We did a laparoscopic appendectomy. In the OR we confirmed the patient had acute appendicitis. The patient tolerated the procedure well. After the procedure the patient transported from the recovery room and later on transported to regular floor. The patient doing fine. She tolerated a clear diet, good comfort for pain. The patient walked around. PHYSICAL EXAMINATION: VITAL SIGNS: Temperature shows 36.5, heart rate 85, respiratory rate 16, blood pressure 117/68. O2 saturation 98% on room air. GENERAL: The patient is alert, awake, oriented x3. No distress. HEAD, EYES, EARS, NOSE, AND THROAT: Within normal limitation. NEUROLOGIC EXAMINATION: Intact. NECK: No JVD. CHEST: Bilateral lung sounds clear. HEART: Normal S1, S2. No murmur. ABDOMEN: Soft, no distention. All dressings intact. Good comfort incision pain. Bowel sounds positive. EXTREMITIES: No edema. The patient doing fine. The patient wanted to go home today. I gave the patient the postop care instructions and we will follow up the patient in 1 week. The patient understands. Also instructed the patient the patient should come back to the hospital ER of the patient develops any severe abdominal pain, nausea, vomiting, diarrhea, fever. The patient understands.
== END 2016-12-24 14:20 | disposition home or self-care (01) ==
LOC: ENRESERVTM → ENRESERVDT → C.EDB 19:19 → C.MSN 22:27
PROVIDERS: ADMIT Surgery; ATTEND Surgery
DX: K35.80 Unspecified acute appendicitis (principal); Z82.49 Family history of ischemic heart disease and other diseases of the circulatory system